=== PATIENT | male | born 1945 | race Caucasian/White ===

== ENCOUNTER 2020-02-04 14:31 | Inpatient (IN) | payer MEDICARE ==
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
[2020-02-04] MEDS ORDERED: NALOXONE 0.4 MG/ML 1 ML VIAL IV PRN (15:29)
[2020-02-04] MEDS ORDERED: HEPARIN SODIUM,PORCINE 5,000 UNIT/ML 1 ML VIAL IV ONE (15:31)
[2020-02-04] MEDS ORDERED: HEPARIN SODIUM,PORCINE 5,000 UNIT/ML 1 ML VIAL IV PRN (15:31)
[2020-02-04] MEDS: SODIUM CHLORIDE 0.9% 1,000 ML IV SCH (15:52)
[2020-02-04] MEDS: HEPARIN SOD,PORK IN 0.45% NACL 25,000 UNIT in 0.45% NACL 1 250ML.BAG IV SCH (15:52)
--- NOTE | 2020-02-04 16:41 | US ---
EXAMINATION TYPE: US scrotum with doppler. Grayscale and color Doppler Duplex imaging performed of t jayshree scrotum. DATE OF EXAM: 02/04/2020 COMPARISON: NONE CLINICAL HISTORY: edema. edema for 2 days EXAM MEASUREMENTS: TESTICLES: Right Testicle: 2.8 x 2.0 x 2.2 cm Left Testicle: 2.9 x 2.1 x 2.1 cm EPIDIDYMIS HEAD: Right Epididymis: 1.2 cm Left Epididymis: 1.6 cm Doppler performed to assess for testicular vascularity; good bilateral color flow and waveforms are s een. There is no evidence of testicular torsion. Presence of hydroceles: fluid collection inferior to right testicle = 1.8cm Heterogeneous right epididymis IMPRESSION: There is a mild right-sided hydrocele. No testicular torsion or mass.
[2020-02-04] MEDS: FAMOTIDINE 20 MG TAB PO SCH (19:55)
[2020-02-04] MEDS ORDERED: ONDANSETRON 4 MG/2 ML VIAL IVP PRN (21:00)
[2020-02-04] MEDS ORDERED: LACTULOSE 20 GM/30 ML CUP PO PRN (21:00)
[2020-02-04] MEDS ORDERED: MAGNESIUM HYDROXIDE 2,400 MG/10 ML CUP PO PRN (21:00)
[2020-02-04] MEDS ORDERED: MELATONIN 3 MG TABLET PO PRN (21:00)
[2020-02-04] MEDS ORDERED: CALCIUM CARBONATE 500 MG CHEWABLE PO PRN (21:00)
[2020-02-04] MEDS ORDERED: MAG HYDROX/AL HYDROX/SIMETH 30 ML CUP PO PRN (21:00)
[2020-02-05] MEDS: ALPRAZolam 0.25 MG TAB PO PRN ×2 (02:44→20:18)
[2020-02-05 07:34] LABS: Basophils % (A) 0 %; Eosinophils # (A) 0.1 k/uL (0-0.7); Eosinophils % (A) 1 %; HCT 36.1 % (39.0-53.0); HGB 10.4 gm/dL (13.0-17.5); Hypochromasia Marked; Lymphocytes % (A) 14 %; MCH 30.7 pg (25.0-35.0); MCHC 28.7 g/dL (31.0-37.0); MCV 106.9 fL (80.0-100.0); Macrocytosis Moderate; Mean Platelet Volume 8.5; Monocytes # (A) 0.3 k/uL (0-1.0); Monocytes % (A) 5 %; Neutrophils # (A) 5.6 k/uL (1.3-7.7); Neutrophils % (A) 78 %; Platelet Count 174 k/uL (150-450); RBC 3.38 m/uL (4.30-5.90); RDW 14.5 % (11.5-15.5); WBC 7.1 k/uL (3.8-10.6)
[2020-02-05] MEDS ORDERED: FUROSEMIDE 10 MG/ML 4 ML VIAL IV STA (08:18)
[2020-02-05] MEDS ORDERED: FUROSEMIDE 10 MG/ML 4 ML VIAL ONE (08:20)
[2020-02-05] MEDS: DILTIAZEM 125 MG in SODIUM CHLORIDE 0.9% 100 ML IV SCH ×2 (08:26→17:44)
[2020-02-05] MEDS: FAMOTIDINE 20 MG TAB PO SCH (08:32)
[2020-02-05 09:05] LABS: Calcium 8.4 mg/dL (8.4-10.2); Magnesium 2.4 mg/dL (1.6-2.3); Potassium 4.6 mmol/L (3.5-5.1)
--- NOTE | 2020-02-05 09:58 | XR ---
EXAMINATION TYPE: XR chest 1V portable DATE OF EXAM: 02/05/2020 CLINICAL HISTORY: Shortness of breath TECHNIQUE: Portable upright view of the chest obtained COMPARISON: None FINDINGS: There is near complete opacification of the right hemithorax. The cardiomediastinal silhou ette is obscured. No left-sided focal air space opacity, pleural effusion, or pneumothorax seen. The osseous structures are intact. IMPRESSION: Large volume right pleural effusion with near complete opacification of the right hemitho rax.
--- NOTE | 2020-02-05 12:18 | CONS ---
CONSULTATION PULMONARY/CRITICAL CARE CONSULTATION: DATE OF CONSULTATION: 02/05/2020 A 74-year-old male whom we have limited information on. He apparently sees Dr. Crys Fleming at [facility]. Anyway, he apparently presented to the emergency department there and was transferred to [facility] here. He went there primarily because of scrotal edema. He was also found on chest x-ray to have a large right-sided pleural effusion. The patient is not a particularly good historian. He apparently has not been taking his medications. Anyway, the patient came in with a scrotal edema and a right-sided pleural effusion. He also apparently complained of some shortness of breath. No chest pain or chest discomfort. No fever or chills. Again a very poor historian. There was no chest x-ray here for my review. I was able to order chest x-ray and the patient does have a large right-sided pleural effusion. An ultrasound will be done. In addition, he presented with new onset atrial fibrillation with RVR. MEDICATIONS: Reviewed. They include aspirin, Lipitor, Colace, folic acid, multivitamins, thiamine, and amlodipine. ALLERGIES: Denied. MEDICAL HISTORY: Apparently positive for hypertension, vitamin deficiency, constipation, and hyperlipidemia. SURGICAL HISTORY: Includes bilateral cataract surgery, right wzrwi-mwi-[id number] amputation, and some orthopedic procedures. SOCIAL HISTORY: Positive for previous heavy tobacco use. Does not smoke currently. No alcohol use or illicit drug use according to the medical records. FAMILY HISTORY: Not known. Allergies are denied. REVIEW OF SYSTEMS: CONSTITUTIONAL: Weakness. NEUROLOGIC: Negative. HEENT: Negative. CARDIOVASCULAR: Negative. PULMONARY: Shortness of breath and right-sided pleural effusion. GI: Negative. : Scrotal edema. RHEUMATOLOGIC: Negative. IMMUNOLOGIC: Negative. ENDOCRINOLOGIC: Negative. DERMATOLOGIC: Negative. Current vital signs are reviewed. Temperature is 97.4, heart rate 100, respiratory rate 18, blood pressure 105/73 mean 83 and 3 L saturation 98%. The patient is asleep. He appears in no distress. He is not using any accessory muscles and there is no audible wheezing. HEENT: Examination is grossly unremarkable. Nasal O2 noted. NECK: Supple. Full range of motion. No adenopathy. Neck veins are flat. CARDIOVASCULAR: Examination reveals tachycardia. Heart rate 108. S1, S2 normal. Heart sounds are distant. No clear-cut murmur noted. LUNGS: Reveal diminished breath sounds at the right base. There are crackles at the right base. The left lung is mostly clear, although there are few rhonchi. ABDOMEN: Soft, bowel sounds are heard. EXTREMITIES: Intact. No edema. SKIN: Without rash. NEUROLOGIC: Examination is difficult to assess. Currently, white count 7.1, hemoglobin 10.4, hematocrit 36.1, platelet count 174,000, PTT is 56.9. Sodium 140, potassium 4.6, chloride 108, CO2 is 27, anion gap is 5. BUN and creatinine were 47 and 1.55. EKG shows atrial fibrillation with a ventricular response rate of about is 115-118 beats per minute. A scrotal ultrasound shows presence of hydrocele and fluid collections inferior to the testicles. Chest x-ray shows a large right-sided pleural effusion with near complete opacification of the right lung. An ultrasound was ordered. Medications are reviewed. Currently he is on Tylenol, Xanax, calcium carbonate, Cardizem drip, IV heparin drip, Pepcid, lactulose, magnesium hydroxide, melatonin, Zofran and saline at 20 mL an hour. ASSESSMENT: 1. Large right-sided pleural effusion, which may relate to underlying cardiac disease. There also may be a component of infection, i.e. pneumonia. 2. History of hypertension. 3. Hyperlipidemia. 4. Noncompliance with medications. 5. Previous history of right rknbq-fwk-[id number] amputation. 6. History of cataracts, status post cataract surgery. 7. Scrotal edema. PLAN: The patient will have an ultrasound of the right chest. If there is a large fluid collection, will attempt thoracentesis. No additional recommendations are made. Medications are reviewed. Will DC medications that my interfere with us doing a thoracentesis. MMODL / IJN: [id number] /
[2020-02-05] MEDS ORDERED: CEFEPIME 1 GM in SODIUM CHLORIDE 0.9% 50 ML IVPB ONE (12:45)
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
[2020-02-05] MEDS: IPRATROPIUM-ALBUTEROL 3 ML NEB INHALATION SCH ×4 (16:11→23:49)
[2020-02-05] MEDS: BUDESONIDE 1 MG/2 ML NEBU INHALATION SCH ×3 (16:11→21:21)
[2020-02-05] MEDS: FORMOTEROL FUMARATE 20 MCG/2 ML NEBU INHALATION SCH ×3 (16:11→21:21)
--- NOTE | 2020-02-05 16:28 | US ---
EXAMINATION TYPE: US chest DATE OF EXAM: 02/05/2020 COMPARISON: NONE CLINICAL HISTORY: right chest with markings please. Right pleural effusion TECHNIQUE: Targeted ultrasound of the posterior lower right hemithorax EXAM MEASUREMENTS: Right Pleural Effusion pocket size: 12.5 cm Right skin surface to fluid distance: 2.6 cm Right side marked for possible thoracentesis outside the dept. Pulmonologists are able to review the images in the patient?s EMR. IMPRESSIONS: Large volume right pleural effusion. Site marking of the right chest performed.
[2020-02-05] MEDS: HEPARIN SOD,PORK IN 0.45% NACL 25,000 UNIT in 0.45% NACL 1 250ML.BAG IV SCH (17:44)
[2020-02-05] MEDS: SODIUM CHLORIDE 0.9% 1,000 ML IV SCH ×2 (17:47→23:48)
[2020-02-05] MEDS: guaiFENesin 600 MG TABLET.ER PO SCH ×2 (17:47→23:44)
[2020-02-05] MEDS ORDERED: NITROGLYCERIN SL TABS 0.4 MG TAB SUBLINGUAL PRN (20:12)
[2020-02-05] MEDS: ACETAMINOPHEN TAB 325 MG TAB PO PRN (20:18)
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
[2020-02-06] MEDS: CEFEPIME 1 GM in SODIUM CHLORIDE 0.9% 50 ML IVPB SCH ×3 (01:42→20:00)
[2020-02-06] MEDS: IPRATROPIUM-ALBUTEROL 3 ML NEB INHALATION SCH ×6 (03:46→23:40)
[2020-02-06 06:18] LABS: Basophils % (A) 0 %; Eosinophils # (A) 0.1 k/uL (0-0.7); Eosinophils % (A) 1 %; HCT 37.7 % (39.0-53.0); Hypochromasia Marked; Lymphocytes # (A) 0.9 k/uL (1.0-4.8); Lymphocytes % (A) 13 %; MCH 31.4 pg (25.0-35.0); MCV 108.1 fL (80.0-100.0); Macrocytosis Marked; Mean Platelet Volume 8.5; Monocytes # (A) 0.4 k/uL (0-1.0); Monocytes % (A) 5 %; Neutrophils # (A) 5.6 k/uL (1.3-7.7); Neutrophils % (A) 79 %; Platelet Count 165 k/uL (150-450); RBC 3.49 m/uL (4.30-5.90); RDW 14.4 % (11.5-15.5)
[2020-02-06 06:44] LABS: Potassium 4.4 mmol/L (3.5-5.1)
[2020-02-06] MEDS: BUDESONIDE 1 MG/2 ML NEBU INHALATION SCH ×2 (08:23→19:28)
[2020-02-06] MEDS: FORMOTEROL FUMARATE 20 MCG/2 ML NEBU INHALATION SCH ×2 (08:23→19:28)
[2020-02-06] MEDS: DILTIAZEM 125 MG in SODIUM CHLORIDE 0.9% 100 ML IV SCH (09:15)
--- NOTE | 2020-02-06 09:28 | ECHOF ---
Referral Reason:heart failure MEASUREMENTS -------- HEIGHT: 172.7 cm WEIGHT: 64.9 kg BP: RVIDd: 3.4 cm (< 3.3) IVSd: 0.8 cm (0.6 - 1.1) LVIDd: 4.7 cm (3.9 - 5.3) LVPWd: 0.9 cm (0.6 - 1.1) IVSs: 1.0 cm LVIDs: 4.1 cm LVPWs: 0.9 cm LAESV Index (A-L): 48.50 ml/m Ao Diam: 3.2 cm (2.0 - 3.7) AV Cusp: 1.2 cm (1.5 - 2.6) LA Diam: 4.0 cm (2.7 - 3.8) MV EXCURSION: 18.395 mm (> 18.000) MV EF SLOPE: 87 mm/s (70 - 150) EPSS: 0.9 cm MV E Tony: 1.11 m/s MV DecT: 212 ms MV A Tony: 0.27 m/s MV E/A Ratio: 4.19 RAP: 15.00 mmHg RVSP: 43.35 mmHg FINDINGS -------- Resting tachycardia (HR>100bpm). This was a technically good study. The left ventricular size is normal. Left ventricular wall thickness is normal. There is severe g lobal hypokinesis of LV . Overall left ventricular systolic function is severely impaired with, an EF between 20 - 25 %. Increased LAP Grade 2 Diastolic Dysfunction. The right ventricle is mildly enlarged. LA is severely dilated >40 ml/m2 The right atrial size is normal. Interatrial and interventricular septum intact. Aortic valve is trileaflet and is mildly thickened. There is mild aortic valve sclerosis. Peak/me an gradient across the Aortic Valve is {AV maxPG} / {AV meanPG}. The mitral valve is normal. Mild mitral regurgitation is present. The tricuspid valve appears structurally normal. Mild tricuspid regurgitation present. There is m ild pulmonary hypertension. The right ventricular systolic pressure, as measured by Doppler, is 43. 35mmHg. There is no pulmonic regurgitation present. The aortic root size is normal. The inferior vena cava is mildly dilated. There is no pericardial effusion. CONCLUSIONS -------- 1. There is severe global hypokinesis of LV . 2. Overall left ventricular systolic function is severely impaired with, an EF between 20 - 25 %. 3. Increased LAP Grade 2 Diastolic Dysfunction. 4. The right ventricle is mildly enlarged. 5. LA is severely dilated >40 ml/m2 6. Aortic valve is trileaflet and is mildly thickened. 7. There is mild aortic valve sclerosis. 8. Peak/mean gradient across the Aortic Valve is {AV maxPG} / {AV meanPG}. 9. Mild mitral regurgitation is present. 10. Mild tricuspid regurgitation present. 11. There is mild pulmonary hypertension. 12. The right ventricular systolic pressure, as measured by Doppler, is 43.35mmHg. 13. The inferior vena cava is mildly dilated. RESEARCH COMPLIANCE SPECIALIST: Socorro Lopez RDCS
[2020-02-06] MEDS: guaiFENesin 600 MG TABLET.ER PO SCH ×2 (10:16→19:59)
[2020-02-06] MEDS: FAMOTIDINE 20 MG TAB PO SCH (10:16)
[2020-02-06 11:08] LABS: Bilirubin, Delta 0.1 mg/dL (0.0-0.2); Bilirubin,Unconjugated 0.2 mg/dL (0.0-1.1); Magnesium 2.3 mg/dL (1.6-2.3); Total Bilirubin 0.3 mg/dL (0.2-1.3)
--- NOTE | 2020-02-06 11:38 | US ---
EXAMINATION TYPE: US kidneys/renal and bladder DATE OF EXAM: 02/06/2020 COMPARISON: NONE CLINICAL HISTORY: assess for chronic CKD. EXAM MEASUREMENTS: Right Kidney: 9.8 x 6.2 x 5.6 cm Left Kidney: 11.6 x 4.8 x 4.2 cm Spleen: 14.5 cm Right Kidney: No hydronephrosis or masses seen. Measuring smaller than left Left Kidney: No hydronephrosis or masses seen Bladder: Not fully distended, wnl as visualized Bilateral Jets seen: No There is no evidence for hydronephrosis at this point in time. No nephrolithiasis is seen. No luz s are identified. Cortical medullary differentiation is maintained. C Small amount of ascites visualized. Large right sided pleural effusion visualized IMPRESSION: Renal sizes as described. Ascites and right pleural effusion.
--- NOTE | 2020-02-06 12:16 | XR ---
EXAMINATION TYPE: XR chest 1V portable DATE OF EXAM: 02/06/2020 COMPARISON: Prior chest x-ray dated 02/05/2020 HISTORY: Status post right thoracentesis TECHNIQUE: Single frontal view of the chest is obtained. FINDINGS: There is some improvement in aeration within the right chest, persistent apical pleural th ickening, right pleural effusion noted. No evident pneumothorax. Heart is likely enlarged, patient is rotated. Patient is rotated, exam is expiratory. Aorta is dense. IMPRESSION: No evident complication status post thoracentesis.
[2020-02-06 13:13] LABS: Color,BF Yellow
[2020-02-06 13:14] LABS: Appearance,BF Cloudy; Nucleated Cells, Body Fluid 260 /uL; RBC, Body Fluid 7050 /uL
[2020-02-06 13:25] LABS: Mononuclear WBC,Body Fluid 92 %; Polynuclear WBC,Body Fluid 8 %; Total Cells Counted,Body Fluid 100
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
--- NOTE | 2020-02-06 15:43 | PN ---
PROGRESS NOTE FOLLOW-UP NOTE: This is a 74-year-old gentleman who was admitted to hospital with large right-sided pleural effusion with respiratory distress and atrial fibrillation with rapid ventricular rate. He was to undergo thoracentesis yesterday but did not. His echocardiogram had come back showing severe LV dysfunction. This morning patient is less responsive, marginally hypotensive with systolic blood pressures in the 90s. Heart rates are in the 110s. I am going to stop the intravenous Cardizem. I have asked the nurse to call the pharmacy resident to perform the thoracentesis expeditiously, and I am going to use oral amiodarone for rate control and continue the IV heparin. On exam, heart rate is 100 beats per minute. Blood pressure is 90/64. There is no jugular venous distention. Chest exam reveals absent air entry on the right side. Heart exam reveals first and second heart sounds, irregular rhythm. Abdomen is soft. Examination of extremities reveals mild edema. Peripheral pulses are felt. Labs show a hemoglobin of 11. Potassium is 4.4. Creatinine is 1.8. BUN is 49. His troponins were 0.02, 0.02 and 0.039, and they are of clinical significance. ASSESSMENT: 1. Persistent atrial fibrillation with somewhat of a poorly controlled ventricular rate. 2. Large right-sided pleural effusion. 3. Cardiomyopathy with severe left ventricular dysfunction. PLAN: I will use amiodarone for rate control. Continue IV heparin. Stop the Cardizem. Await thoracentesis. When his blood pressure improves, we are going to put him on WAGNER inhibitors and beta blockers. MMODL / IJN: [id number] /
[2020-02-06] MEDS: SODIUM CHLORIDE 0.9% 1,000 ML IV SCH ×2 (16:18→18:07)
--- NOTE | 2020-02-06 17:20 | PCN ---
PROCEDURE NOTE PROCEDURE: Right-sided thoracentesis. PREOPERATIVE DIAGNOSIS: Right pleural effusion. POSTOPERATIVE DIAGNOSIS: Right pleural effusion. OPERATORS: Dr. Carty and Maria Dolores Montero The right posterior chest was marked by ultrasound. 1300 mL of brownish fluid was removed from the right pleural space. The patient tolerated the procedure well. There was no immediate complication. A chest x-ray will be ordered. The heparin can be resumed. The patient tolerated the procedure well. Fluid will be sent for analysis including cytology, microbiology, and chemistry No additional recommendations are made at this time. Will continue to follow closely. MMODL / IJN: [id number] / MTDD
[2020-02-06] MEDS: AMIODARONE 200 MG TAB PO SCH ×2 (18:04→20:00)
[2020-02-06] MEDS: HEPARIN SOD,PORK IN 0.45% NACL 25,000 UNIT in 0.45% NACL 1 250ML.BAG IV SCH (18:08)
[2020-02-06 21:02] LABS: Glucose, BF Source Pleural Fluid; Glucose, Body Fluid 134 mg/dL; LDH, Body Fluid Source Pleural Fluid; Total Protein, Body Fluid 4000 mg/dL
[2020-02-06] MEDS: ACETAMINOPHEN TAB 325 MG TAB PO PRN (21:37)
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
[2020-02-06 22:57] LABS: Glucose,Whole Blood 177 mg/dL (75-99)
--- NOTE | 2020-02-06 23:25 | XR ---
EXAMINATION TYPE: XR chest 1V portable DATE OF EXAM: 02/06/2020 COMPARISON: Today HISTORY: Respiratory distress TECHNIQUE: Single view FINDINGS: Heart is enlarged. Thoracic aorta is atheromatous. There is pulmonary vascular congestion. There is blunting of the costophrenic angles on the right side more than the left. There is pleural f luid extending to the right lung apex. There are chest leads. IMPRESSION: Congestive heart failure with large right pleural effusion and small left pleural effusio n. Atheromatous aorta. There is overall no significant change compared to the exam this morning. Bila teral pneumonia is possible.
[2020-02-06 23:37] LABS: Basophils % (A) 0 %; Eosinophils # (A) 0.1 k/uL (0-0.7); Eosinophils % (A) 2 %; HCT 36.2 % (39.0-53.0); HGB 10.3 gm/dL (13.0-17.5); Hypochromasia Marked; Lymphocytes # (A) 0.6 k/uL (1.0-4.8); Lymphocytes % (A) 10 %; MCH 30.6 pg (25.0-35.0); MCHC 28.4 g/dL (31.0-37.0); MCV 107.6 fL (80.0-100.0); Macrocytosis Moderate; Mean Platelet Volume 8.3; Monocytes # (A) 0.3 k/uL (0-1.0); Monocytes % (A) 4 %; Neutrophils # (A) 5.5 k/uL (1.3-7.7); Neutrophils % (A) 83 %; Platelet Count 164 k/uL (150-450); RBC 3.36 m/uL (4.30-5.90); RDW 14.4 % (11.5-15.5); WBC 6.6 k/uL (3.8-10.6)
[2020-02-06 23:44] LABS: ABG Base Excess -2.4 mmol/L; ABG HCO3 25 mmol/L (21-25); ABG Oxygen Saturation 98.2 % (94-97); ABG PCO2 57 mmHg (35-45); ABG PH 7.25 (7.35-7.45); ABG PO2 109 mmHg (83-108); ABG TCO2 27 mmol/L (19-24); Allen Test Performed? Yes
[2020-02-07] MEDS: SODIUM CHLORIDE 0.9% 1,000 ML IV SCH ×2 (00:05→12:27)
[2020-02-07 00:14] LABS: Albumin 3.1 g/dL (3.5-5.0); Calcium 8.1 mg/dL (8.4-10.2); Potassium 4.5 mmol/L (3.5-5.1); Total Bilirubin 0.5 mg/dL (0.2-1.3); Total Protein 6.8 g/dL (6.3-8.2)
[2020-02-07] MEDS ORDERED: HALOPERIDOL LACTATE 5 MG/ML 1 ML VIAL ONE (02:59)
[2020-02-07] MEDS: IPRATROPIUM-ALBUTEROL 3 ML NEB INHALATION SCH ×5 (03:21→19:36)
[2020-02-07 06:57] LABS: Basophils % (A) 0 %; Eosinophils # (A) 0.1 k/uL (0-0.7); Eosinophils % (A) 2 %; HCT 34.5 % (39.0-53.0); HGB 10.5 gm/dL (13.0-17.5); Hypochromasia Marked; Lymphocytes # (A) 0.9 k/uL (1.0-4.8); Lymphocytes % (A) 14 %; MCH 32.3 pg (25.0-35.0); MCHC 30.4 g/dL (31.0-37.0); MCV 106.3 fL (80.0-100.0); Macrocytosis Moderate; Mean Platelet Volume 9.2; Monocytes # (A) 0.3 k/uL (0-1.0); Monocytes % (A) 5 %; Neutrophils # (A) 5.1 k/uL (1.3-7.7); Neutrophils % (A) 78 %; Platelet Count 148 k/uL (150-450); RBC 3.24 m/uL (4.30-5.90); RDW 14.4 % (11.5-15.5); WBC 6.5 k/uL (3.8-10.6)
[2020-02-07 07:16] LABS: Poikilocytosis (M) Present
[2020-02-07] MEDS: BUDESONIDE 1 MG/2 ML NEBU INHALATION SCH ×2 (07:56→19:36)
[2020-02-07] MEDS: FORMOTEROL FUMARATE 20 MCG/2 ML NEBU INHALATION SCH ×2 (07:56→19:36)
[2020-02-07] MEDS: FAMOTIDINE 20 MG TAB PO SCH ×2 (10:28→10:55)
[2020-02-07] MEDS: AMIODARONE 200 MG TAB PO SCH ×2 (10:28→19:45)
[2020-02-07] MEDS: CEFEPIME 1 GM in SODIUM CHLORIDE 0.9% 50 ML IVPB SCH ×2 (10:28→19:45)
[2020-02-07] MEDS: guaiFENesin 600 MG TABLET.ER PO SCH ×2 (10:33→19:45)
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
[2020-02-07 12:35] LABS: Appearance,Urine Cloudy (Clear); Bacteria,Urine Rare /hpf; Bilirubin,Urine Negative (Negative); Blood,Urine Small (Negative); Color,Urine Yellow; Glucose,Urine (UA) Negative (Negative); Granular Casts,Urine 5 /lpf (0); Hyaline Casts,Urine 5 /lpf (0-2); Ketones,Urine Negative (Negative); Leukocyte Esterase,Urine Negative (Negative); Mucus,Urine Rare /hpf; Nitrite,Urine Negative (Negative); PH, Urine 5.5 (5.0-8.0); Protein,Urine 1+ (Negative); RBC,Urine 12 /hpf (0-5); Specific Gravity,Urine 1.016 (1.001-1.035); Squamous Epithelial Cell,Urine 1 /hpf (0-4); Urobilinogen,Urine <2.0 mg/dL (<2.0); WBC,Urine 6 /hpf (0-5)
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
--- NOTE | 2020-02-07 16:39 | PN ---
PROGRESS NOTE A 74-year-old gentleman was admitted to hospital with right-sided pleural effusion and atrial fibrillation. On exam, heart rate is 108 beats per minute, irregular. Blood pressure is 92/61. Chest exam reveals diminished air entry at the right base. Heart exam reveals first and second heart sounds, irregular rhythm. Abdomen is soft. Exam of extremities reveals mild edema. LABS: Show a hemoglobin of 10.5. ASSESSMENT: 1. Persistent atrial fibrillation with better controlled ventricular rate. 2. Right-sided pleural effusion. PLAN: I will continue the amiodarone, IV heparin and start him on a small dose of beta tootie. MMODL / IJN: [id number] /
[2020-02-07] MEDS: HEPARIN SOD,PORK IN 0.45% NACL 25,000 UNIT in 0.45% NACL 1 250ML.BAG IV SCH (19:30)
[2020-02-07] MEDS: METOPROLOL TARTRATE 25 MG TAB PO SCH (19:45)
[2020-02-07] MEDS: HALOPERIDOL LACTATE 5 MG/ML 1 ML VIAL IVP PRN (22:45)
[2020-02-08] MEDS: SODIUM CHLORIDE 0.9% 1,000 ML IV SCH ×2 (00:25→13:47)
[2020-02-08] MEDS: IPRATROPIUM-ALBUTEROL 3 ML NEB INHALATION SCH ×6 (00:37→20:03)
--- NOTE | 2020-02-08 08:59 | XR ---
EXAMINATION TYPE: XR chest 1V portable DATE OF EXAM: 02/08/2020 CLINICAL HISTORY: CHF, pneumonia TECHNIQUE: Portable upright view of the chest obtained COMPARISON: Chest radiograph 02/06/2020 FINDINGS: Cardiomegaly redemonstrated. Pulmonary vascular congestion mildly decreased versus 02/06/20 20. No sizable left effusion. Unchanged large right pleural effusion. No pneumothorax. IMPRESSION: 1. Mildly improved pulmonary vascular congestion and resolution of left pleural effusion versus 2019. 2. Unchanged large right pleural effusion.
[2020-02-08] MEDS: FAMOTIDINE 20 MG TAB PO SCH (09:08)
[2020-02-08] MEDS: AMIODARONE 200 MG TAB PO SCH ×2 (09:09→22:13)
[2020-02-08] MEDS: guaiFENesin 600 MG TABLET.ER PO SCH ×2 (09:10→22:13)
[2020-02-08] MEDS: CEFEPIME 1 GM in SODIUM CHLORIDE 0.9% 50 ML IVPB SCH ×2 (09:10→22:11)
[2020-02-08] MEDS: FORMOTEROL FUMARATE 20 MCG/2 ML NEBU INHALATION SCH ×3 (09:45→20:09)
[2020-02-08] MEDS: BUDESONIDE 1 MG/2 ML NEBU INHALATION SCH ×2 (09:45→20:03)
[2020-02-08] MEDS: METOPROLOL TARTRATE 25 MG TAB PO SCH (10:49)
[2020-02-08] MEDS: APIXABAN 5 MG TAB PO SCH ×2 (11:12→22:12)
[2020-02-08 12:08] LABS: Basophils % (A) 0 %; Eosinophils # (A) 0.1 k/uL (0-0.7); Eosinophils % (A) 1 %; HCT 35.8 % (39.0-53.0); HGB 10.5 gm/dL (13.0-17.5); Hypochromasia Marked; Lymphocytes # (A) 0.7 k/uL (1.0-4.8); Lymphocytes % (A) 11 %; MCH 31.1 pg (25.0-35.0); MCHC 29.3 g/dL (31.0-37.0); MCV 106.3 fL (80.0-100.0); Macrocytosis Moderate; Mean Platelet Volume 8.7; Monocytes # (A) 0.4 k/uL (0-1.0); Monocytes % (A) 5 %; Neutrophils # (A) 5.5 k/uL (1.3-7.7); Neutrophils % (A) 81 %; Platelet Count 154 k/uL (150-450); RBC 3.37 m/uL (4.30-5.90); RDW 14.3 % (11.5-15.5); WBC 6.7 k/uL (3.8-10.6)
[2020-02-08 12:49] LABS: Calcium 7.8 mg/dL (8.4-10.2)
[2020-02-08] MEDS: METOPROLOL TARTRATE 12.5 MG TAB PO SCH ×2 (13:46→22:04)
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
--- NOTE | 2020-02-08 15:27 | PN ---
PROGRESS NOTE Viet is admitted to hospital with a large right-sided pleural effusion and atrial fibrillation with rapid ventricular rate. Heart rate is better controlled now on amiodarone 400 b.i.d., Lopressor 25 b.i.d. He is on IV heparin. I am going to switch him to Eliquis 5 b.i.d. On exam, he appears mildly confused. Heart rate is 95 beats per minute. Blood pressure is 93/62, respiratory rate is 18. Chest exam reveals diminished air entry at the right base. Heart exam reveals first and second heart sounds, irregular rhythm. Exam of the extremities did not reveal any edema. LABS: Show that the hemoglobin is 10.5, platelet count is 148. ASSESSMENT: 1. Right-sided pleural effusion, status post thoracentesis. 2. Persistent atrial fibrillation. PLAN: I will continue the amiodarone and switch heparin to Eliquis. MMODL / IJN: [id number] /
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
[2020-02-09] MEDS: IPRATROPIUM-ALBUTEROL 3 ML NEB INHALATION SCH ×7 (00:45→23:18)
[2020-02-09] MEDS: SODIUM CHLORIDE 0.9% 1,000 ML IV SCH (06:11)
[2020-02-09] MEDS: BUDESONIDE 1 MG/2 ML NEBU INHALATION SCH ×2 (08:38→19:19)
[2020-02-09] MEDS: FORMOTEROL FUMARATE 20 MCG/2 ML NEBU INHALATION SCH ×2 (08:38→19:19)
[2020-02-09] MEDS: guaiFENesin 600 MG TABLET.ER PO SCH ×2 (10:05→19:56)
[2020-02-09] MEDS: FAMOTIDINE 20 MG TAB PO SCH (10:05)
[2020-02-09] MEDS: METOPROLOL TARTRATE 5 MG/5 ML VIAL IVP SCH ×2 (10:14→19:56)
[2020-02-09] MEDS: CEFEPIME 1 GM in SODIUM CHLORIDE 0.9% 50 ML IVPB SCH ×2 (10:21→19:52)
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
--- NOTE | 2020-02-09 12:01 | P.PN ---
Subjective Progress Note Date: 02/09/20 This is a confused 74-year-old gentleman who was admitted to the hospital with large right-sided pleural effusion and atrial fibrillation with rapid ventricular response. Heart rate is better controlled on amiodarone 400 mg by mouth twice a day and metoprolol tartrate 25 mg by mouth twice a day. He was s witched to oral anticoagulation yesterday. According to the nursing staff the patient is difficult to arouse and uncooperative. He was refusing to take his medications this morning. Labs this morning show elevation in his BUN and creatinine at 54 and 2.23. Vital signs have been stable. Objective - Vital Signs Vital signs: Vital Signs Temp 97.5 F L 02/09/20 07:55 Pulse 84 02/09/20 09:04 Resp 18 02/09/20 07:55 BP 107/77 02/09/20 07:55 Pulse Ox 97 02/09/20 07:55 Intake & Output 02/08/20 02/09/20 02/09/20 18:59 06:59 18:59 Intake Total 120 Balance 120 Weight 70.5 kg Intake: Oral 120 Other: Voiding Method Urinal Diaper Diaper Diaper Incontinent Incontinent Incontinent # Voids 2 1 - Exam PHYSICAL EXAMINATION: HEENT: Head is atraumatic, normocephalic. Pupils equal, round. Neck is supple. There is no elevated jugular venous pressure. HEART EXAMINATION: Heart sounds irregular, S1 and S2 with a systolic murmur. CHEST EXAMINATION: Lungs are clear to auscultation and precussion. No chest wall tenderness is noted on palpation or with deep breathing. ABDOMEN: Soft, nontender. Bowel sounds are heard. No organomegaly noted. EXTREMITIES: No evidence of peripheral edema. NEUROLOGIC patient is difficult to arouse and oriented x1. . - Labs CBC & Chem 7: 02/08/20 11:53 02/08/20 11:53 Labs: Abnormal Lab Results - Last 24 Hours (Table) 02/08/20 02/08/20 Range/Units 11:53 11:53 RBC 3.37 L (4.30-5.90) m/uL Hgb 10.5 L (13.0-17.5) gm/dL Hct 35.8 L (39.0-53.0) % MCV 106.3 H (80.0-100.0) fL MCHC 29.3 L (31.0-37.0) g/dL Lymphocytes # 0.7 L (1.0-4.8) k/uL Sodium 135 L (137-145) mmol/L BUN 54 H (9-20) mg/dL Creatinine 2.23 H (0.66-1.25) mg/dL Glucose 146 H (74-99) mg/dL Calcium 7.8 L (8.4-10.2) mg/dL Assessment and Plan Assessment: #1 right sided pleural effusion, status post thoracentesis #2 persistent atrial fibrillation #3 altered mental status Plan: From cardiology's perspective we will stop by mouth beta tootie and add metoprolol tartrate 5 mg IV push every 12 hours. If the patient continues to refuse oral medications we may end up switching back to IV heparin. Will continue to follow patient arrived further recommendations accordingly. The above dictated assessment and findings were discussed with signing physician. The impression and plan of care have been directed as dictated. Brisa Dubose, Nurse Practitioner, acting as scribe for signing physician.
[2020-02-09] MEDS: APIXABAN 5 MG TAB PO SCH (12:39)
[2020-02-09] MEDS: AMIODARONE 200 MG TAB PO SCH ×2 (12:39→19:56)
[2020-02-09] MEDS: METOPROLOL TARTRATE 12.5 MG TAB PO SCH (15:21)
[2020-02-09] MEDS ORDERED: HEPARIN SODIUM,PORCINE 5,000 UNIT/ML 1 ML VIAL IV ONE (16:47)
[2020-02-09] MEDS ORDERED: HEPARIN SODIUM,PORCINE 5,000 UNIT/ML 1 ML VIAL IV PRN (16:50)
[2020-02-09 17:25] LABS: Basophils % (A) 0 %; Eosinophils # (A) 0.1 k/uL (0-0.7); Eosinophils % (A) 1 %; HCT 36.1 % (39.0-53.0); HGB 10.7 gm/dL (13.0-17.5); Hypochromasia Marked; Lymphocytes # (A) 0.7 k/uL (1.0-4.8); Lymphocytes % (A) 12 %; MCH 31.3 pg (25.0-35.0); MCHC 29.5 g/dL (31.0-37.0); MCV 106.2 fL (80.0-100.0); Macrocytosis Moderate; Mean Platelet Volume 8.4; Monocytes # (A) 0.3 k/uL (0-1.0); Monocytes % (A) 5 %; Neutrophils # (A) 4.5 k/uL (1.3-7.7); Neutrophils % (A) 79 %; Platelet Count 167 k/uL (150-450); RDW 14.4 % (11.5-15.5); WBC 5.7 k/uL (3.8-10.6)
[2020-02-09] MEDS: HEPARIN SOD,PORK IN 0.45% NACL 25,000 UNIT in 0.45% NACL 1 250ML.BAG IV SCH (17:27)
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
[2020-02-10] MEDS: IPRATROPIUM-ALBUTEROL 3 ML NEB INHALATION SCH ×6 (03:37→23:50)
[2020-02-10] MEDS: SODIUM CHLORIDE 0.9% 1,000 ML IV SCH ×2 (03:57→20:38)
[2020-02-10 07:54] LABS: Basophils % (A) 0 %; Eosinophils # (A) 0.1 k/uL (0-0.7); Eosinophils % (A) 1 %; HCT 36.3 % (39.0-53.0); HGB 10.8 gm/dL (13.0-17.5); Hypochromasia Marked; Lymphocytes # (A) 0.7 k/uL (1.0-4.8); Lymphocytes % (A) 11 %; MCHC 29.6 g/dL (31.0-37.0); MCV 104.5 fL (80.0-100.0); Macrocytosis Moderate; Mean Platelet Volume 8.5; Monocytes # (A) 0.3 k/uL (0-1.0); Monocytes % (A) 6 %; Neutrophils # (A) 4.8 k/uL (1.3-7.7); Neutrophils % (A) 80 %; Platelet Count 178 k/uL (150-450); RBC 3.47 m/uL (4.30-5.90); RDW 14.5 % (11.5-15.5)
[2020-02-10] MEDS: METOPROLOL TARTRATE 5 MG/5 ML VIAL IVP SCH ×2 (08:20→20:37)
[2020-02-10] MEDS: AMIODARONE 200 MG TAB PO SCH ×2 (08:21→20:37)
[2020-02-10] MEDS: FAMOTIDINE 20 MG TAB PO SCH (08:23)
[2020-02-10] MEDS: guaiFENesin 600 MG TABLET.ER PO SCH ×2 (08:23→20:37)
[2020-02-10] MEDS: BUDESONIDE 1 MG/2 ML NEBU INHALATION SCH ×2 (08:39→19:12)
[2020-02-10] MEDS: FORMOTEROL FUMARATE 20 MCG/2 ML NEBU INHALATION SCH ×2 (08:39→19:12)
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
[2020-02-10] MEDS: CEFEPIME 1 GM in SODIUM CHLORIDE 0.9% 50 ML IVPB SCH ×2 (13:03→20:37)
[2020-02-10] MEDS: HEPARIN SOD,PORK IN 0.45% NACL 25,000 UNIT in 0.45% NACL 1 250ML.BAG IV SCH (15:31)
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
[2020-02-11] MEDS: IPRATROPIUM-ALBUTEROL 3 ML NEB INHALATION SCH ×5 (03:22→19:44)
[2020-02-11 06:47] LABS: Basophils % (A) 0 %; Eosinophils # (A) 0.1 k/uL (0-0.7); Eosinophils % (A) 1 %; HCT 35.4 % (39.0-53.0); HGB 10.4 gm/dL (13.0-17.5); Hypochromasia Marked; Lymphocytes # (A) 0.7 k/uL (1.0-4.8); Lymphocytes % (A) 12 %; MCH 30.7 pg (25.0-35.0); MCHC 29.3 g/dL (31.0-37.0); MCV 104.8 fL (80.0-100.0); Macrocytosis Moderate; Mean Platelet Volume 8.6; Monocytes # (A) 0.3 k/uL (0-1.0); Monocytes % (A) 6 %; Neutrophils # (A) 4.6 k/uL (1.3-7.7); Neutrophils % (A) 79 %; Platelet Count 171 k/uL (150-450); RBC 3.37 m/uL (4.30-5.90); RDW 14.8 % (11.5-15.5); WBC 5.7 k/uL (3.8-10.6)
[2020-02-11] MEDS: BUDESONIDE 1 MG/2 ML NEBU INHALATION SCH ×2 (08:36→19:44)
[2020-02-11] MEDS: FORMOTEROL FUMARATE 20 MCG/2 ML NEBU INHALATION SCH ×2 (08:36→19:44)
--- NOTE | 2020-02-11 08:49 | PN ---
PROGRESS NOTE He is a 74-year-old gentleman admitted to the hospital with pleural effusion and atrial fibrillation. Remains confused and refusing to take medications. Code status has been just changed. PHYSICAL EXAMINATION: On exam heart rate is 80 beats per minute, blood pressure is 108/80, respiratory rate 18. Chest exam reveals good air entry bilaterally. Heart exam reveals first and second heart sounds, irregular rhythm and a systolic murmur at the left lower sternal border. Abdomen is soft. Exam of the extremities did not reveal any edema. Peripheral pulses are felt. LABS: Lab show a hemoglobin of 10.8, platelet count is 178, potassium is 5, BUN is 54, creatinine is 2.2. ASSESSMENT: 1. Large right-sided pleural effusion. 2. Persistent atrial fibrillation. PLAN: Continue current medications. Prognosis is guarded. MMODL / IJN: [id number] /
[2020-02-11] MEDS: METOPROLOL TARTRATE 5 MG/5 ML VIAL IVP SCH ×2 (08:57→20:39)
[2020-02-11] MEDS: CEFEPIME 1 GM in SODIUM CHLORIDE 0.9% 50 ML IVPB SCH ×2 (08:57→20:42)
[2020-02-11] MEDS: AMIODARONE 200 MG TAB PO SCH ×2 (09:05→20:31)
[2020-02-11] MEDS: FAMOTIDINE 20 MG TAB PO SCH (09:05)
[2020-02-11] MEDS: guaiFENesin 600 MG TABLET.ER PO SCH ×2 (09:05→20:32)
[2020-02-11] MEDS: SODIUM CHLORIDE 0.9% 1,000 ML IV SCH (10:43)
[2020-02-11 11:11] LABS: Albumin 2.7 g/dL (3.5-5.0); Calcium 8.2 mg/dL (8.4-10.2); Potassium 5.4 mmol/L (3.5-5.1); Total Bilirubin 0.4 mg/dL (0.2-1.3); Total Protein 6.2 g/dL (6.3-8.2)
--- NOTE | 2020-02-11 11:19 | XR ---
EXAMINATION TYPE: XR chest 1V DATE OF EXAM: 02/11/2020 COMPARISON: 02/08/2020 HISTORY: Follow-up pneumonia TECHNIQUE: Single frontal view of the chest is obtained. FINDINGS: There now is near complete opacification the right hemithorax with left basilar infiltrate and small effusion. Heart size stable. Atherosclerotic change aorta. No pneumothorax. IMPRESSION: 1. Intramural worsening of the chest x-ray with near complete opacification of the right hemithorax w ith stable left lower lobe infiltrate and small effusion.
--- NOTE | 2020-02-11 11:59 | P.PN ---
Subjective Progress Note Date: 02/11/20 Principal diagnosis: Long-standing persistent atrial fibrillation This is a 74-year-old gentleman with long-standing persistent atrial fibrillation who was admitted initially to the hospital with right-sided pleural effusion and he underwent thoracocentesis. The patient was seen today. He is is symptomatically from a perivascular standpoint of view. He continues to refuse taking his metoprolol as well as oral anticoagulation by mouth. Currently he is on Lopressor IV as well as he is on heparin IV. On physical examination he does have diminished breathing sounds on the right side and a chest x-ray showed worsening right sided pleural effusion. Objective - Vital Signs Vital signs: Vital Signs Temp 97.9 F 02/11/20 11:38 Pulse 110 H 02/11/20 11:38 Resp 18 02/11/20 11:38 BP 104/69 02/11/20 11:38 Pulse Ox 96 02/11/20 11:38 Intake & Output 02/10/20 02/11/20 02/11/20 18:59 06:59 18:59 Intake Total 686.684 0 Output Total 0 Balance 686.684 0 0 Weight 68.5 kg 76.5 kg Intake: Intake, IV Titration 586.684 Amount Cefepime 1 gm In Sodium 400 Chloride 0.9% 50 ml @ 12. 5 mls/hr IVPB Q12HR [facility] Rx#:[id number] Heparin Sod,Pork in 0.45% 186.684 NaCl 25,000 unit In 0.45 % NaCl 1 250ml.bag @ 12 UNITS/KG/HR 8.46 mls/hr IV .Q24H [facility] Rx#: [id number] Oral 100 0 Output: Urine 0 Other: Voiding Method Diaper Diaper Diaper Incontinent Incontinent Incontinent # Voids 1 2 - Constitutional General appearance: Present: no acute distress - Respiratory Respiratory: right: diminished - Cardiovascular Rhythm: irregularly irregular Heart sounds: normal: S1, S2 - Labs CBC & Chem 7: 02/11/20 06:10 02/11/20 06:10 Labs: Abnormal Lab Results - Last 24 Hours (Table) 02/11/20 02/11/20 02/11/20 Range/Units 06:10 06:10 06:10 RBC 3.37 L (4.30-5.90) m/uL Hgb 10.4 L (13.0-17.5) gm/dL Hct 35.4 L (39.0-53.0) % MCV 104.8 H (80.0-100.0) fL MCHC 29.3 L (31.0-37.0) g/dL Lymphocytes # 0.7 L (1.0-4.8) k/uL APTT 45.3 H (22.0-30.0) sec Potassium 5.4 H (3.5-5.1) mmol/L Chloride 113 H (98-107) mmol/L BUN 48 H (9-20) mg/dL Creatinine 1.72 H (0.66-1.25) mg/dL Calcium 8.2 L (8.4-10.2) mg/dL AST 14 L (17-59) U/L Total Protein 6.2 L (6.3-8.2) g/dL Albumin 2.7 L (3.5-5.0) g/dL Microbiology - Last 24 Hours (Table) 02/06/20 12:00 Gram Stain - Final Pleural Fluid Body Fluid Culture - Final Assessment and Plan Assessment: Assessment #1 recurrent pleural effusion on the right side #2 long-standing persistent atrial fibrillation #3 change in mental status Plan #1 the patient continues to refuse take his medications by mouth #2 continue the Lopressor IV as well as heparin IV #3 follow-up with the patient
[2020-02-11] MEDS: HEPARIN SOD,PORK IN 0.45% NACL 25,000 UNIT in 0.45% NACL 1 250ML.BAG IV SCH (14:22)
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
--- NOTE | 2020-02-11 17:31 | CT ---
EXAMINATION TYPE: CT chest wo con DATE OF EXAM: 02/11/2020 COMPARISON: None HISTORY: Shortness of breath CT DLP: 546.1 mGycm Automated exposure control for dose reduction was used. Images were obtained from the thoracic inlet to the diaphragm with no contrast. There is large right pleural effusion. There is extensive consolidation and atelectasis in the right lung. There is essentially no aeration of the right lung. There are air bronchograms in the right low er lobe and right upper lobe. There is mild to moderate left pleural effusion. There is atelectasis l eft posterior lung base. There is dense coronary artery calcification. Heart is enlarged. Thoracic ao rta is atheromatous. There is 4.1 cm aneurysm of the ascending aorta. There appears to be enlarged pr etracheal lymph node measures 3.5 cm. Images of the upper abdomen show a rounded area of increased de nsity in the lateral right kidney that is probably atypical cyst containing calcium and measures 2 cm . There is no adrenal mass. There is evidence of abdominal ascites. There is right-sided perinephric fluid Accumulation. Thoracic vertebra have fairly normal alignment. Posterior elements are intact. There is spurring of t he endplates. I see no bony destructive process. The ribs appear intact. There is no thoracic dmitri bejna fracture. IMPRESSION: Right-sided hydrothorax with consolidation and atelectasis in the right lung. Enlarged pretracheal ly mph node. Thoracic aortic aneurysm. Atherosclerotic vascular disease. Mild to moderate left pleural e ffusion with left basilar atelectasis. Cardiomegaly. Pleural fluid could relate to congestive heart f ailure but malignancy should certainly be considered.
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
[2020-02-11] MEDS: ENOXAPARIN 80 MG/0.8 ML SYRINGE SQ SCH (20:41)
[2020-02-12] MEDS: IPRATROPIUM-ALBUTEROL 3 ML NEB INHALATION SCH ×6 (01:17→19:53)
[2020-02-12 06:42] LABS: Basophils % (A) 0 %; Eosinophils # (A) 0.1 k/uL (0-0.7); Eosinophils % (A) 2 %; HCT 38.2 % (39.0-53.0); HGB 11.1 gm/dL (13.0-17.5); Hypochromasia Marked; Lymphocytes # (A) 0.7 k/uL (1.0-4.8); Lymphocytes % (A) 9 %; MCH 31.1 pg (25.0-35.0); MCHC 29.2 g/dL (31.0-37.0); MCV 106.7 fL (80.0-100.0); Macrocytosis Moderate; Mean Platelet Volume 8.1; Monocytes # (A) 0.4 k/uL (0-1.0); Monocytes % (A) 6 %; Neutrophils # (A) 5.7 k/uL (1.3-7.7); Neutrophils % (A) 82 %; Platelet Count 177 k/uL (150-450); RBC 3.58 m/uL (4.30-5.90); RDW 14.7 % (11.5-15.5)
[2020-02-12] MEDS: BUDESONIDE 1 MG/2 ML NEBU INHALATION SCH ×2 (08:00→19:53)
[2020-02-12] MEDS: FORMOTEROL FUMARATE 20 MCG/2 ML NEBU INHALATION SCH ×2 (08:00→19:53)
[2020-02-12] MEDS: guaiFENesin 600 MG TABLET.ER PO SCH ×2 (09:26→20:16)
[2020-02-12] MEDS: FAMOTIDINE 20 MG TAB PO SCH (09:26)
[2020-02-12] MEDS: CEFEPIME 1 GM in SODIUM CHLORIDE 0.9% 50 ML IVPB SCH ×2 (09:26→20:28)
[2020-02-12] MEDS: AMIODARONE 200 MG TAB PO SCH ×2 (09:26→20:15)
[2020-02-12] MEDS: ENOXAPARIN 80 MG/0.8 ML SYRINGE SQ SCH ×2 (09:27→20:29)
[2020-02-12] MEDS: METOPROLOL TARTRATE 5 MG/5 ML VIAL IVP SCH ×2 (09:27→20:28)
--- NOTE | 2020-02-12 09:40 | XR ---
EXAMINATION TYPE: XR chest 1V portable DATE OF EXAM: 02/12/2020 CLINICAL HISTORY: Hemothorax TECHNIQUE: Portable upright view of the chest obtained COMPARISON: 02/11/2020 chest radiograph FINDINGS: There is partially obscured cardiomediastinal silhouette, with unchanged visualized left s ilhouette. There is near complete opacification of the right hemithorax, with mildly improved aeratio n of the right lung. Small left pleural effusion unchanged. No pneumothorax. IMPRESSION: 1. Near complete opacification of the right hemithorax with minimally improved aeration of the right lung versus 02/11/2020. 2. Unchanged small left pleural effusion.
--- NOTE | 2020-02-12 11:50 | P.PN ---
Subjective Progress Note Date: 02/12/20 Principal diagnosis: Long-standing persistent atrial fibrillation This is a 74-year-old gentleman with long-standing persistent atrial fibrillation who was admitted initially to the hospital with right-sided pleural effusion and he underwent thoracocentesis. The patient was seen today, October 122019. This did help some change in mental status. He continues to be on IV metoprolol as well as IV heparin at this point. We'll continue the current medical regimen and will follow-up with the patient on when necessary case. Objective - Vital Signs Vital signs: Vital Signs Temp 98.4 F 02/12/20 04:00 Pulse 104 H 02/12/20 08:23 Resp 20 02/12/20 08:00 BP 110/72 02/12/20 08:00 Pulse Ox 99 02/12/20 10:53 Intake & Output 02/11/20 02/12/20 02/12/20 18:59 06:59 18:59 Intake Total 193.311 503.016 Output Total 0 Balance 193.311 503.016 Weight 74 kg Intake: Intake, IV Titration 193.311 503.016 Amount Cefepime 1 gm In Sodium 50 Chloride 0.9% 50 ml @ 12. 5 mls/hr IVPB Q12HR [facility] Rx#:[id number] Heparin Sod,Pork in 0.45% 193.311 53.016 NaCl 25,000 unit In 0.45 % NaCl 1 250ml.bag @ 12 UNITS/KG/HR 8.46 mls/hr IV .Q24H [facility] Rx#: [id number] Sodium Chloride 0.9% 1, 400 000 ml @ 50 mls/hr IV . Q20H [facility] Rx#:[id number] Oral 0 Output: Urine 0 Other: Voiding Method Diaper Diaper Diaper Incontinent Incontinent Incontinent # Voids 0 1 1 # Bowel Movements 0 0 - Constitutional General appearance: Present: no acute distress - Respiratory Respiratory: right: diminished - Cardiovascular Heart sounds: normal: S1, S2 - Labs CBC & Chem 7: 02/12/20 06:21 02/11/20 06:10 Labs: Abnormal Lab Results - Last 24 Hours (Table) 02/12/20 02/12/20 Range/Units 06:21 06:21 RBC 3.58 L (4.30-5.90) m/uL Hgb 11.1 L (13.0-17.5) gm/dL Hct 38.2 L (39.0-53.0) % MCV 106.7 H (80.0-100.0) fL MCHC 29.2 L (31.0-37.0) g/dL Lymphocytes # 0.7 L (1.0-4.8) k/uL APTT 32.9 H (22.0-30.0) sec Microbiology - Last 24 Hours (Table) 02/11/20 13:40 Gram Stain - Preliminary Sputum Sputum Culture - Preliminary Assessment and Plan Assessment: Assessment #1 recurrent pleural effusion on the right side #2 long-standing persistent atrial fibrillation #3 change in mental status Plan #1 the patient continues to refuse take his medications by mouth #2 continue the Lopressor IV as well as heparin IV #3 follow-up with the patient on when necessary case
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
[2020-02-12] MEDS: SODIUM CHLORIDE 0.9% 1,000 ML IV SCH (14:02)
[2020-02-12] MEDS: HALOPERIDOL LACTATE 5 MG/ML 1 ML VIAL IVP PRN (21:25)
[2020-02-12 21:48] VITALS: RESP 18
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
[2020-02-13] MEDS: IPRATROPIUM-ALBUTEROL 3 ML NEB INHALATION SCH ×4 (01:14→11:37)
[2020-02-13] MEDS: SODIUM CHLORIDE 0.9% 1,000 ML IV SCH (05:30)
[2020-02-13] MEDS: BUDESONIDE 1 MG/2 ML NEBU INHALATION SCH (08:10)
[2020-02-13] MEDS: FORMOTEROL FUMARATE 20 MCG/2 ML NEBU INHALATION SCH (08:10)
[2020-02-13] MEDS: guaiFENesin 600 MG TABLET.ER PO SCH (08:23)
[2020-02-13] MEDS: FAMOTIDINE 20 MG TAB PO SCH (08:23)
[2020-02-13] MEDS: AMIODARONE 200 MG TAB PO SCH (08:23)
[2020-02-13] MEDS: ENOXAPARIN 80 MG/0.8 ML SYRINGE SQ SCH (08:34)
[2020-02-13] MEDS: METOPROLOL TARTRATE 5 MG/5 ML VIAL IVP SCH (08:34)
[2020-02-13 10:29] VITALS: BMI 22.3
[2020-02-13 11:36] VITALS: BP 99/65; TEMP 97.8
[2020-02-13 11:49] VITALS: PULSE 104
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
== END 2020-02-13 15:59 | disposition hospice, home (50) | DRG 177 ==
LOC: EC 14:31 → 3SCARD 15:29
PROVIDERS: ADMIT Hospitalist; ATTEND Hospitalist
PROC: 0W993ZZ Drainage of Right Pleural Cavity, Percutaneous Approach (ICD-10-PCS; principal; 2020-02-06)
PROC: 5A09557 Assistance with Respiratory Ventilation, Greater than 96 Consecutive Hours, Continuous Positive Airway Pressure (ICD-10-PCS; 2020-02-06)
DX: J15.6 Pneumonia due to other Gram-negative bacteria (principal); J96.01 Acute respiratory failure with hypoxia; J96.02 Acute respiratory failure with hypercapnia; N17.0 Acute kidney failure with tubular necrosis; G93.41 Metabolic encephalopathy; I50.21 Acute systolic (congestive) heart failure; J44.1 Chronic obstructive pulmonary disease with (acute) exacerbation; E44.1 Mild protein-calorie malnutrition; I48.11 Longstanding persistent atrial fibrillation; I42.9 Cardiomyopathy, unspecified; F05 Delirium due to known physiological condition; J44.0 Chronic obstructive pulmonary disease with (acute) lower respiratory infection; J91.8 Pleural effusion in other conditions classified elsewhere; I13.0 Hypertensive heart and chronic kidney disease with heart failure and stage 1 through stage 4 chronic kidney disease, or unspecified chronic kidney disease; Z66 Do not resuscitate; Z51.5 Encounter for palliative care; Z20.828 Contact with and (suspected) exposure to other viral communicable diseases; E78.5 Hyperlipidemia, unspecified; D53.9 Nutritional anemia, unspecified; F17.200 Nicotine dependence, unspecified, uncomplicated; E53.8 Deficiency of other specified B group vitamins; R53.81 Other malaise; E56.9 Vitamin deficiency, unspecified; I27.20 Pulmonary hypertension, unspecified; N50.89 Other specified disorders of the male genital organs; H54.7 Unspecified visual loss; N18.3 Chronic kidney disease, stage 3 (moderate); R32 Unspecified urinary incontinence; Z89.511 Acquired absence of right leg below knee; Z91.14 Patient's other noncompliance with medication regimen; Z79.899 Other long term (current) drug therapy; Z79.82 Long term (current) use of aspirin; Z79.01 Long term (current) use of anticoagulants; Z98.890 Other specified postprocedural states; Z98.42 Cataract extraction status, left eye; Z98.41 Cataract extraction status, right eye; Z91.19 Patient's noncompliance with other medical treatment and regimen
CPT/HCPCS: 71045; 71250; 76604; 76770; 76870; 80048; 80053; 80076; 81001; 82805; 82945; 83605; 83615; 83735; 83880; 84145; 84157; 84484; 85025; 85730; 87070; 87077; 87102; 87116; 87186; 87205; 87206; 87252; 87496; 87498; 87502; 87529; 87634; 87798; 88108; 88305; 89050; 93005; 93306; 93975; 94640; 94660; 94760; 96365; 96366; 96376; 99285